=== PATIENT | male | born 1965 | race Caucasian/White ===

== ENCOUNTER → 2016-09-22 | Outpatient (REF) | payer MEDICARE ==
[~2016-09-22] MED LIST: /ACETCOD2T PO; ASPI81TA85 PO; ELIQ5TAB PO; FENT100D25 TD; LEVO200T4 PO; LEVO75TA4 PO; METF500T PO; METO25TA74 PO; OXYC-299 PO; TYLE650T25 PO; [UNRECOGNIZED DRUG - CODE] PO
[2016-09-22 12:34] LABS: THYROXINE (T4) 9.2 UG/DL (4.5-12.0)
== END ==
LOC: M SFHCLERA 09:44
PROVIDERS: ATTEND Family Medicine
DX: E03.9 Hypothyroidism, unspecified (principal)

== ENCOUNTER → 2016-09-23 | Outpatient (CLI) | payer MEDICARE ==
[~2016-09-23] MED LIST changes: +LIDOCAINE 2% INJ 100 MG/5 ML SDV (FOR ANES.) As Ordered ONE; +METOCLOPRAMIDE INJ 10MG/2ML VIAL (J2765) As Ordered ONE; +ONDANSETRON 4MG/2ML VIAL (J2405) As Ordered ONE; +PROPOFOL 200 MG/20 ML VIAL As Ordered ONE
--- NOTE | 2016-09-23 14:36 | ROOR ---
Patient Name: Luca Interiano Procedure Date: 09/23/2016 2:17 PM Date of : 1965 Age: 51 Room: [facility] Gender: Male Note Status: Finalized Procedure: Colonoscopy Indications: Screening for colorectal malignant neoplasm Providers: Vicente Myles Jr, MD Referring MD: THOMAS BRYSON MD Requesting Provider: Medicines: Propofol per Anesthesia Complications: No immediate complications. Procedure: Pre-Anesthesia Assessment: - Prior to the procedure, a History and Physical was performed, and patient medications and allergies were reviewed. The patient is competent. The risks and benefits of the procedure and the sedation options and risks were discussed with the patient. All questions were answered and informed consent was obtained. Patient identification and proposed procedure were verified by the physician and the nurse in the pre-procedure area and in the procedure room. Mental Status Examination: alert and oriented. Airway Examination: normal oropharyngeal airway and neck mobility. Respiratory Examination: clear to auscultation. CV Examination: normal. ASA Grade Assessment: II - A patient with mild systemic disease. After reviewing the risks and benefits, the patient was deemed in satisfactory condition to undergo the procedure. The anesthesia plan was to use moderate sedation / analgesia (conscious sedation). Immediately prior to administration of medications, the patient was re-assessed for adequacy to receive sedatives. The heart rate, respiratory rate, oxygen saturations, blood pressure, adequacy of pulmonary ventilation, and response to care were monitored throughout the procedure. The physical status of the patient was re-assessed after the procedure. The Colonoscope was introduced through the anus and advanced to the cecum, identified by appendiceal orifice and ileocecal valve. The colonoscopy was performed with moderate difficulty due to poor bowel prep with stool present. Successful completion of the procedure was aided by lavage. Findings: The perianal and digital rectal examinations were normal. Pertinent negatives include normal sphincter tone, no palpable rectal lesions and no anal lesion or abnormality was detected. Multiple small and large-mouthed diverticula were found in the sigmoid colon and descending colon. A few small and large-mouthed diverticula were found in the transverse colon and ascending colon. The rectum, recto-sigmoid colon, transverse colon, ascending colon, cecum, appendiceal orifice and ileocecal valve appeared normal. Impression: - Diverticulosis in the sigmoid colon and in the descending colon. - Diverticulosis in the transverse colon and in the ascending colon. - The rectum, recto-sigmoid colon, transverse colon, ascending colon, cecum, appendiceal orifice and ileocecal valve are normal. - No specimens collected. Recommendation: - Discharge patient to home (ambulatory). - Repeat colonoscopy in 10 years for screening purposes. Vicente Myles MD Vicente Myles Jr, MD 09/23/2016 2:35:54 PM This report has been signed electronically. Number of Addenda: 0 Note Initiated On: 09/23/2016 2:17 PM Estimated Blood Loss: Estimated blood loss: none.
[2016-09-23 15:10] VITALS: BP 153/81
== END ==
LOC: M OPP 13:18
PROVIDERS: ATTEND Surgery
DX: Z12.11 Encounter for screening for malignant neoplasm of colon (principal); K57.30 Diverticulosis of large intestine without perforation or abscess without bleeding; I10 Essential (primary) hypertension; I48.91 Unspecified atrial fibrillation; E78.5 Hyperlipidemia, unspecified; E11.9 Type 2 diabetes mellitus without complications; E03.9 Hypothyroidism, unspecified; E78.00 Pure hypercholesterolemia, unspecified; F41.9 Anxiety disorder, unspecified; F32.9 Major depressive disorder, single episode, unspecified; Z87.891 Personal history of nicotine dependence; Z79.82 Long term (current) use of aspirin; Z79.899 Other long term (current) drug therapy
CPT/HCPCS: 99156; 99157; G0121; J2405; J2765

== ENCOUNTER → 2016-10-21 | Outpatient (REF) | payer MEDICARE ==
[~2016-10-21] MED LIST changes: -LIDOCAINE 2% INJ 100 MG/5 ML SDV (FOR ANES.) As Ordered ONE; -METOCLOPRAMIDE INJ 10MG/2ML VIAL (J2765) As Ordered ONE; -ONDANSETRON 4MG/2ML VIAL (J2405) As Ordered ONE; -PROPOFOL 200 MG/20 ML VIAL As Ordered ONE
[2016-10-21 17:23] LABS: MEAN CORPUSCULAR HEMOGLOBIN 30.4 pg (27.0-33.0); MEAN CORPUSCULAR HGB CONC 33.9 g/dl (32.0-36.5); MEAN CORPUSCULAR VOLUME 89.8 fl (80.0-96.0); RED CELL DISTRIBUTION WIDTH 12.1 % (11.5-14.5); WHITE BLOOD COUNT 7.7 K/mm3 (4.0-10.0)
[2016-10-21 18:10] LABS: ALBUMIN 3.9 GM/DL (3.2-5.2); ALBUMIN/GLOBULIN RATIO 1.15 (1.00-1.93); ALKALINE PHOSPHATASE 58 U/L (45-117); ALT/SGPT 45 U/L (12-78); ANION GAP 12 MEQ/L (8-16); AST/SGOT 28 U/L (15-37); BLOOD UREA NITROGEN 18 MG/DL (7-18); CALCIUM LEVEL 8.9 MG/DL (8.5-10.1); CARBON DIOXIDE LEVEL 25 MEQ/L (21-32); CHLORIDE LEVEL 102 MEQ/L (98-107); CHOLESTEROL LEVEL 91 MG/DL (<200); CREATININE FOR GFR 0.83 MG/DL (0.70-1.30); GLOMERULAR FILTRATION RATE > 60.0 (>56); GLUCOSE, FASTING 283 MG/DL (70-105); POTASSIUM SERUM 5.1 MEQ/L (3.5-5.1); SODIUM LEVEL 139 MEQ/L (136-145); TOTAL PROTEIN 7.3 GM/DL (6.4-8.2); TRIGLYCERIDES LEVEL 84 MG/DL (<150)
== END ==
LOC: M SFHCLERA 10:30
PROVIDERS: ATTEND Family Medicine
DX: I10 Essential (primary) hypertension (principal); E11.69 Type 2 diabetes mellitus with other specified complication; E03.9 Hypothyroidism, unspecified

== ENCOUNTER → 2017-04-05 | Outpatient (REF) | payer MEDICARE ==
[~2017-04-05] MED LIST changes: +METO1TAB32 PO; -METO25TA74 PO; +OXYC-141 PO; -OXYC-299 PO
[2017-04-05 12:27] LABS: ALBUMIN 3.8 GM/DL (3.2-5.2); ALBUMIN/GLOBULIN RATIO 1.23 (1.00-1.93); ALKALINE PHOSPHATASE 48 U/L (45-117); ALT/SGPT 44 U/L (12-78); ANION GAP 8 MEQ/L (8-16); AST/SGOT 19 U/L (15-37); BILIRUBIN,TOTAL 0.7 MG/DL (0.2-1.0); BLOOD UREA NITROGEN 14 MG/DL (7-18); CALCIUM LEVEL 8.5 MG/DL (8.5-10.1); CARBON DIOXIDE LEVEL 27 MEQ/L (21-32); CHLORIDE LEVEL 104 MEQ/L (98-107); CHOLESTEROL LEVEL 89 MG/DL (<200); CREATININE FOR GFR 0.83 MG/DL (0.70-1.30); GLOMERULAR FILTRATION RATE > 60.0 (>56); GLUCOSE, FASTING 204 MG/DL (70-105); POTASSIUM SERUM 5.1 MEQ/L (3.5-5.1); SODIUM LEVEL 139 MEQ/L (136-145); TOTAL PROTEIN 6.9 GM/DL (6.4-8.2); TRIGLYCERIDES LEVEL 75 MG/DL (<150)
== END ==
LOC: M SFHCLERA 07:34
PROVIDERS: ATTEND Physician Assistant
DX: E11.8 Type 2 diabetes mellitus with unspecified complications (principal); E78.2 Mixed hyperlipidemia; E03.9 Hypothyroidism, unspecified

== ENCOUNTER → 2017-10-04 | Outpatient (REF) | payer MEDICARE ==
[2017-10-04 12:33] LABS: HEMATOCRIT 42.9 % (42.0-52.0); HEMOGLOBIN 14.8 g/dl (14.0-18.0); MEAN CORPUSCULAR HEMOGLOBIN 30.5 pg (27.0-33.0); MEAN CORPUSCULAR HGB CONC 34.5 g/dl (32.0-36.5); MEAN CORPUSCULAR VOLUME 88.3 fl (80.0-96.0); PLATELET COUNT, AUTOMATED 315 10^3/uL (150-450); RED BLOOD COUNT 4.86 10^6/uL (4.30-6.10); RED CELL DISTRIBUTION WIDTH 12.1 % (11.5-14.5); WHITE BLOOD COUNT 6.9 10^3/uL (4.0-10.0)
[2017-10-04 12:49] LABS: ALBUMIN 3.9 GM/DL (3.2-5.2); ALBUMIN/GLOBULIN RATIO 1.22 (1.00-1.93); ALKALINE PHOSPHATASE 54 U/L (45-117); ALT/SGPT 38 U/L (12-78); ANION GAP 11 MEQ/L (8-16); AST/SGOT 20 U/L (7-37); BILIRUBIN,TOTAL 0.8 MG/DL (0.2-1.0); BLOOD UREA NITROGEN 22 MG/DL (7-18); CALCIUM LEVEL 8.7 MG/DL (8.5-10.1); CARBON DIOXIDE LEVEL 25 MEQ/L (21-32); CHLORIDE LEVEL 103 MEQ/L (98-107); CHOLESTEROL LEVEL 78 MG/DL (<200); CHOLESTEROL RISK RATIO 2.166 (<5); CREATININE FOR GFR 0.93 MG/DL (0.70-1.30); GLOMERULAR FILTRATION RATE > 60.0 (>56); GLUCOSE, FASTING 250 MG/DL (70-100); HDL CHOLESTEROL 36 MG/DL (>40); LDL CHOLESTEROL 29.4 MG/DL (<100); NON-HDL-C 42 MG/DL; POTASSIUM SERUM 4.4 MEQ/L (3.5-5.1); PSA SCREENING 0.25 NG/ML (< 4.0); SODIUM LEVEL 139 MEQ/L (136-145); TOTAL PROTEIN 7.1 GM/DL (6.4-8.2); TRIGLYCERIDES LEVEL 63 MG/DL (<150)
[2017-10-04 13:08] LABS: MALB URINE SIEMENS 69.5 MG/L; MAU/CREAT RATIO 24.3 MCG/MG (0.0-30.0)
[2017-10-04 13:26] LABS: ESTIMATED AVERAGE GLUCOSE 252 MG/DL (60-110); HEMOGLOBIN A1c 10.4 %
== END ==
LOC: M SFHCLERA 08:14
DX: I10 Essential (primary) hypertension (principal); E03.9 Hypothyroidism, unspecified; E11.8 Type 2 diabetes mellitus with unspecified complications; E29.1 Testicular hypofunction; Z79.891 Long term (current) use of opiate analgesic
CPT/HCPCS: 84403

== ENCOUNTER 2017-10-18 10:58 | Emergency (ER) | payer MEDICARE ==
[2017-10-18] MEDS: FAMOTIDINE IV BAG 20 MG in APPROPRIATE DILUENT 1 EA IV (12:03)
[2017-10-18] MEDS: methylPREDNISolone INJ 125 MG/2 ML VIAL (J2930) IV (12:03)
[2017-10-18] MEDS: diphenhydrAMINE INJ 50MG/ML VIAL (J1200) IV (12:03)
[2017-10-18 12:09] LABS: BASO # 0.1 10^3/uL (0.0-0.2); BASO % 1.2 % (0.0-1.0); EOS # 0.3 10^3/uL (0.0-0.50); EOS % 3.1 % (0.0-3.0); HEMATOCRIT 46.1 % (42.0-52.0); IMMATURE GRANULOCYTE % 0.7 % (0-3.0); LYMPH # 2.8 10^3/uL (1.5-4.5); LYMPH % 29.1 % (24.0-44.0); MEAN CORPUSCULAR HEMOGLOBIN 30.5 pg (27.0-33.0); MEAN CORPUSCULAR HGB CONC 34.7 g/dl (32.0-36.5); MONO # 0.7 10^3/uL (0.0-0.8); MONO % 7.4 % (0.0-5.0); NEUTROPHILS # 5.5 10^3/uL (1.8-7.7); NEUTROPHILS % 58.5 % (36.0-66.0); PLATELET COUNT, AUTOMATED 323 10^3/uL (150-450); RED BLOOD COUNT 5.24 10^6/uL (4.30-6.10); RED CELL DISTRIBUTION WIDTH 12.1 % (11.5-14.5); WHITE BLOOD COUNT 9.4 10^3/uL (4.0-10.0)
== END 2017-10-18 13:18 | disposition home or self-care (01) ==
LOC: M ED 10:58
DX: T78.3XXA Angioneurotic edema, initial encounter (principal); R22.0 Localized swelling, mass and lump, head; R06.89 Other abnormalities of breathing; X58.XXXA Exposure to other specified factors, initial encounter; Y92.098 Other place in other non-institutional residence as the place of occurrence of the external cause; I10 Essential (primary) hypertension; E11.40 Type 2 diabetes mellitus with diabetic neuropathy, unspecified; I25.2 Old myocardial infarction; M54.2 Cervicalgia; E03.9 Hypothyroidism, unspecified; Z79.899 Other long term (current) drug therapy; Z79.84 Long term (current) use of oral hypoglycemic drugs; Z79.82 Long term (current) use of aspirin; Z79.01 Long term (current) use of anticoagulants
CPT/HCPCS: J1200

== ENCOUNTER → 2018-01-26 | Outpatient (REF) | payer MEDICARE ==
[2018-01-26 11:52] LABS: HEMATOCRIT 43.5 % (42.0-52.0); HEMOGLOBIN 14.9 g/dl (13.5-17.5); MEAN CORPUSCULAR HEMOGLOBIN 30.3 pg (27.0-33.0); MEAN CORPUSCULAR HGB CONC 34.3 g/dl (32.0-36.5); MEAN CORPUSCULAR VOLUME 88.4 fl (80.0-96.0); PLATELET COUNT, AUTOMATED 310 10^3/uL (150-450); RED BLOOD COUNT 4.92 10^6/uL (4.30-6.10); RED CELL DISTRIBUTION WIDTH 12.3 % (11.5-14.5); WHITE BLOOD COUNT 6.1 10^3/uL (4.0-10.0)
[2018-01-26 12:43] LABS: ALBUMIN 3.7 GM/DL (3.2-5.2); ALBUMIN/GLOBULIN RATIO 1.12 (1.00-1.93); ALKALINE PHOSPHATASE 46 U/L (45-117); ALT/SGPT 40 U/L (12-78); ANION GAP 8 MEQ/L (8-16); AST/SGOT 20 U/L (7-37); BILIRUBIN,TOTAL 0.7 MG/DL (0.2-1.0); BLOOD UREA NITROGEN 12 MG/DL (7-18); CALCIUM LEVEL 8.5 MG/DL (8.5-10.1); CARBON DIOXIDE LEVEL 25 MEQ/L (21-32); CHLORIDE LEVEL 107 MEQ/L (98-107); CHOLESTEROL LEVEL 97 MG/DL (<200); CHOLESTEROL RISK RATIO 2.487 (<5); CREATININE FOR GFR 0.82 MG/DL (0.70-1.30); GLOMERULAR FILTRATION RATE > 60.0 (>56); GLUCOSE, FASTING 178 MG/DL (70-100); HDL CHOLESTEROL 39 MG/DL (>40); LDL CHOLESTEROL 44.2 MG/DL (<100); NON-HDL-C 58 MG/DL; POTASSIUM SERUM 4.7 MEQ/L (3.5-5.1); SODIUM LEVEL 140 MEQ/L (136-145); TRIGLYCERIDES LEVEL 69 MG/DL (<150)
[2018-01-26 12:51] LABS: ESTIMATED AVERAGE GLUCOSE 200 MG/DL (60-110); HEMOGLOBIN A1c 8.6 %
== END ==
LOC: M SFHCLERA 09:45
DX: I10 Essential (primary) hypertension (principal); E11.69 Type 2 diabetes mellitus with other specified complication; E03.9 Hypothyroidism, unspecified
CPT/HCPCS: 84443

== ENCOUNTER → 2018-03-29 | Outpatient (REF) | payer MEDICARE ==
[2018-03-29 12:06] LABS: AMPHETAMINES URINE REFLEX NEGATIVE (NEGATIVE); BARBITURATES URINE REFLEX NEGATIVE (NEGATIVE); BENZODIAZEPINES URINE REFLEX NEGATIVE (NEGATIVE); CANNABINOIDS URINE REFLEX NEGATIVE (NEGATIVE); COCAINE METABOLITE URINE REFLE NEGATIVE (NEGATIVE); METHADONE URINE REFLEX NEGATIVE (NEGATIVE); PHENCYCLIDINE URINE REFLEX NEGATIVE (NEGATIVE)
[2018-03-29 12:10] LABS: OPIATES URINE REFLEX PENDING CONFIRMATION (NEGATIVE)
[2018-04-05 14:25] LABS: Opiates Negative (Cutoff=200)
== END ==
LOC: M SFHCLERA 09:38
DX: G89.4 Chronic pain syndrome (principal); Z51.81 Encounter for therapeutic drug level monitoring; Z79.891 Long term (current) use of opiate analgesic
CPT/HCPCS: G0480

== ENCOUNTER → 2018-04-25 | Outpatient (REF) | payer MEDICARE ==
[2018-04-25 12:27] LABS: ESTIMATED AVERAGE GLUCOSE 206 MG/DL (60-110); HEMOGLOBIN A1c 8.8 %
== END ==
LOC: M SFHCLERA 09:43
DX: E11.8 Type 2 diabetes mellitus with unspecified complications (principal)
CPT/HCPCS: 83036

== ENCOUNTER → 2018-08-02 | Outpatient (REF) | payer MEDICARE ==
[2018-08-02 14:01] LABS: ESTIMATED AVERAGE GLUCOSE 226 MG/DL (60-110); HEMOGLOBIN A1c 9.5 %
== END ==
LOC: M SFHCLERA 09:33
DX: E11.65 Type 2 diabetes mellitus with hyperglycemia (principal)
CPT/HCPCS: 83036

== ENCOUNTER → 2018-08-09 | Outpatient (CLI) | payer MEDICARE ==
[~2018-08-09] MED LIST changes: +ATOR40TA75 PO; +BENA25TA10 PO; +JANU100T; +LISI-542; +PRED20TA PO
[2018-08-09 11:53] LABS: APPEARANCE, URINE HAZY (CLEAR); BACTERIA, URINE AUTO 1+ (NEGATIVE); BILIRUBIN, URINE AUTO NEGATIVE (NEGATIVE); BLOOD, URINE BLOOD NEGATIVE (NEGATIVE); COLOR, URINE YELLOW (YELLOW); GLUCOSE, URINE (UA) AUTO 1+ mg/dL (NEGATIVE); KETONE, URINE AUTO NEGATIVE (NEGATIVE); LEUKOCYTE ESTERASE, URINE AUTO NEGATIVE (NEGATIVE); MUCUS, URINE SMALL (NEGATIVE); NITRITE, URINE AUTO NEGATIVE (NEGATIVE); PROTEIN, URINE AUTO NEGATIVE (NEGATIVE); RBC, URINE AUTO 1 /HPF (0-3); SPECIFIC GRAVITY URINE AUTO 1.021 (1.002-1.035); SQUAMOUS EPITHELIAL CELL UR AU 1 /HPF (0-6); URIC ACID CRYSTALS SMALL; UROBILINOGEN, URINE AUTO 0.2 mg/dL (0.0-2.0); WBC, URINE AUTO 4 /HPF (0-3)
== END ==
LOC: M LRY 07:54
PROVIDERS: ATTEND Surgery
DX: N35.919 Unspecified urethral stricture, male, unspecified site (principal)

== ENCOUNTER 2018-08-30 03:19 | Emergency (ER) | payer MEDICARE ==
[~2018-08-30] VITALS: Ht 182.9 cm; Wt 102.3 kg
[2018-08-30] MEDS ORDERED: oxyCODONE 5MG TAB PO ONE (09:15)
[2018-08-30 09:35] VITALS: BP 124/68
== END 2018-08-30 09:35 | disposition home or self-care (01) ==
LOC: M ED 03:19 → EDBD 03:19 → M ED 09:35
DX: T83.83XA Hemorrhage due to genitourinary prosthetic devices, implants and grafts, initial encounter (principal)

== ENCOUNTER 2018-09-04 09:19 | Emergency (ER) | payer MEDICARE ==
[~2018-09-04] VITALS: Ht 172.7 cm; Wt 102.3 kg
[2018-09-04] MEDS ORDERED: FENT12DI8 (09:27)
[2018-09-04] MEDS ORDERED: BUPR150T3 (09:27)
[2018-09-04] MEDS ORDERED: DIAZ10TA2 (09:27)
[2018-09-04] MEDS ORDERED: OXYB5TAB10 (09:27)
[2018-09-04] MEDS ORDERED: TRUL0.5I (09:27)
[2018-09-04] MEDS ORDERED: METO50TA7 (09:27)
[2018-09-04] MEDS ORDERED: METF10004 (09:27)
[2018-09-04 11:01] VITALS: BP 143/80
== END 2018-09-04 11:03 | disposition home or self-care (01) ==
LOC: M ED 09:19
DX: R33.9 Retention of urine, unspecified (principal); Z96.0 Presence of urogenital implants; Z98.890 Other specified postprocedural states; E11.9 Type 2 diabetes mellitus without complications; I10 Essential (primary) hypertension; E03.9 Hypothyroidism, unspecified; G62.9 Polyneuropathy, unspecified; Z87.891 Personal history of nicotine dependence

== ENCOUNTER → 2019-01-04 | Outpatient (REF) | payer MEDICARE ==
[~2019-01-04] MED LIST changes: -/ACETCOD2T PO; +ACET1TAB15 PO; +BUPR150T3; +DIAZ10TA2; +FENT12DI8; +METF10004; +METO50TA7; +OXYB5TAB10; +TRUL0.5I
[2019-01-04 11:52] LABS: HEMOGLOBIN A1c 10.7 %
[2019-01-04 11:58] LABS: ALBUMIN 4.1 GM/DL (3.2-5.2); ALT/SGPT 40 U/L (12-78); BILIRUBIN,TOTAL 0.7 MG/DL (0.2-1.0); BLOOD UREA NITROGEN 21 MG/DL (7-18); CALCIUM LEVEL 9.3 MG/DL (8.5-10.1); CARBON DIOXIDE LEVEL 28 MEQ/L (21-32); CHLORIDE LEVEL 103 MEQ/L (98-107); CHOLESTEROL LEVEL 92 MG/DL (<200); CHOLESTEROL RISK RATIO 2.628 (<5); CREATININE FOR GFR 0.98 MG/DL (0.70-1.30); GLOMERULAR FILTRATION RATE > 60.0 (>56); GLUCOSE, FASTING 272 MG/DL (70-100); HDL CHOLESTEROL 35 MG/DL (>40); LDL CHOLESTEROL 40 MG/DL (<100); NON-HDL-C 57 MG/DL; POTASSIUM SERUM 4.7 MEQ/L (3.5-5.1); SODIUM LEVEL 139 MEQ/L (136-145); TESTOSTERONE 142 NG/DL (241-827); TOTAL PROTEIN 7.2 GM/DL (6.4-8.2); TRIGLYCERIDES LEVEL 86 MG/DL (<150)
[2019-01-04 12:08] LABS: MAU/CREAT RATIO 65.2 MCG/MG (0.0-30.0)
== END ==
LOC: M SFHCLERA 08:21
PROVIDERS: ATTEND Family Medicine
DX: R79.89 Other specified abnormal findings of blood chemistry (principal); E03.9 Hypothyroidism, unspecified; E11.42 Type 2 diabetes mellitus with diabetic polyneuropathy; E78.2 Mixed hyperlipidemia

== ENCOUNTER → 2019-01-19 | Outpatient (REF) | payer MEDICARE ==
[2019-01-19 12:11] LABS: FOLLICLE STIMULATING HORMONE 6.1 mIU/mL (1.4-18.1); LUTEINIZING HORMONE 2.2 mIU/mL (1.5-9.3)
== END ==
LOC: M SFHCLERA 08:30
PROVIDERS: ATTEND Family Medicine
DX: R79.89 Other specified abnormal findings of blood chemistry (principal)

== ENCOUNTER → 2019-03-31 | Outpatient (CLI) | payer MEDICARE ==
--- NOTE | 2019-03-31 13:30 | REP ---
RIGHT SHOULDER, COMPLETE: 03/31/2019. History: Injury, trauma. Findings AC joint spurring superiorly and inferiorly from the clavicle. There are also degenerative changes at the inferior margin of the glenohumeral joint clavicle, scapula, ribs and humerus without fracture, avulsion or abnormal soft-tissue calcification. Impression: 1. AC and glenohumeral joint arthritis with inferior spurring from those joints but no fracture, avulsion or other acute finding. Electronically Signed by Ney Whitney MD 03/31/2019 09:54 P
== END ==
LOC: M LRY 11:32
PROVIDERS: ATTEND Physician Assistant
DX: M19.011 Primary osteoarthritis, right shoulder (principal); S49.91XA Unspecified injury of right shoulder and upper arm, initial encounter; X50.0XXA Overexertion from strenuous movement or load, initial encounter; Y92.9 Unspecified place or not applicable
CPT/HCPCS: 73030; G0463

== ENCOUNTER → 2019-04-18 | Outpatient (REF) | payer MEDICARE ==
[2019-04-18 11:29] LABS: FREE T4 1.1 NG/DL (0.76-1.46); PERCENT SATURATION 25.1 % (19.7-50.0)
[2019-04-18 11:44] LABS: HEMOGLOBIN A1c 9.7 %
[2019-04-18 12:55] LABS: CORTISOL AM 27.7 UG/DL (4.3-22.4)
== END ==
LOC: M SFHCLERA 07:58
PROVIDERS: ATTEND Family Medicine
DX: R79.89 Other specified abnormal findings of blood chemistry (principal); E11.42 Type 2 diabetes mellitus with diabetic polyneuropathy; E03.9 Hypothyroidism, unspecified

== ENCOUNTER → 2019-07-04 | Outpatient (CLI) | payer MEDICARE ==
--- NOTE | 2019-07-04 12:39 | REP ---
MRI RIGHT SHOULDER: TECHNIQUE: Axial T2 fat sat, gradient echo, sagittal oblique T2 fat sat, coronal oblique T1, T2 fat sat. There is ill-defined high signal involving the supraspinatus and infraspinatus tendons compatible with mild to moderate tendinopathy/tendinitis. Partial undersurface tear is seen at the distal end of the supraspinatus tendon. There may be a partial intrasubstance tear of the infraspinatus tendon. There are mild hypertrophic degenerative changes of the acromioclavicular joint with moderate fluid in the joint and mild subchondral marrow edema. Acromion is type 1. Biceps tendon is unremarkable. There is no Hill-Sachs deformity. The deltoid muscle demonstrates no abnormal signal. Diffuse SLAP tear is noted which also involves the biceps labral complex. I suspect at tear at the posterior inferior corner of the labrum. No other abnormal bone marrow signal is seen. Mild subacromial fluid is seen. IMPRESSION: Supraspinatus and infraspinatus tendinopathy/tendinitis. Partial undersurface tear distal supraspinatus tendon. Possible intrasubstance tear infraspinatus tendon. Moderate hypertrophic degenerative changes acromioclavicular joint. Type 1 acromion. Diffuse SLAP tear, which involves the biceps labral complex. I also suspect a tear at the posterior inferior corner of the labrum. Electronically Signed by Thomas Maldonado MD 07/05/2019 11:19 A
== END ==
LOC: M RAD 10:03
PROVIDERS: ATTEND Orthopaedic Surgery
DX: M25.511 Pain in right shoulder (principal)

== ENCOUNTER → 2019-07-27 | Outpatient (REF) | payer MEDICARE ==
[2019-07-27 11:30] LABS: AMPHETAMINES URINE REFLEX NEGATIVE (NEGATIVE); BARBITURATES URINE REFLEX NEGATIVE (NEGATIVE); BENZODIAZEPINES URINE REFLEX NEGATIVE (NEGATIVE); CANNABINOIDS URINE REFLEX NEGATIVE (NEGATIVE); COCAINE METABOLITE URINE REFLE NEGATIVE (NEGATIVE); METHADONE URINE REFLEX NEGATIVE (NEGATIVE); OPIATES URINE REFLEX NEGATIVE (NEGATIVE); PHENCYCLIDINE URINE REFLEX NEGATIVE (NEGATIVE)
[2019-07-27 11:32] LABS: HEMOGLOBIN A1c 10.4 %
[2019-07-27 11:38] LABS: BLOOD UREA NITROGEN 18 MG/DL (7-18); CARBON DIOXIDE LEVEL 24 MEQ/L (21-32); CHLORIDE LEVEL 104 MEQ/L (98-107); CREATININE FOR GFR 1.04 MG/DL (0.70-1.30); GLOMERULAR FILTRATION RATE > 60.0 (>56); GLUCOSE, FASTING 310 MG/DL (70-100); POTASSIUM SERUM 4.9 MEQ/L (3.5-5.1); SODIUM LEVEL 137 MEQ/L (136-145)
== END ==
LOC: M SFHCLERA 08:14
PROVIDERS: ATTEND Family Medicine
DX: G89.4 Chronic pain syndrome (principal); E11.8 Type 2 diabetes mellitus with unspecified complications; E03.9 Hypothyroidism, unspecified

== ENCOUNTER → 2019-07-28 | Outpatient (REF) | payer MEDICARE | LOC: M SFHCLERA 09:50 | PROVIDERS: ATTEND Family Medicine | DX: R89.2 Abnormal level of other drugs, medicaments and biological substances in specimens from other organs, systems and tissues (principal) ==

== ENCOUNTER 2019-10-08 05:32 | Emergency (ER) | payer MEDICARE ==
[~2019-10-08] VITALS: Ht 172.7 cm; Wt 104.5 kg
[2019-10-08] MEDS ORDERED: ROXI1TAB2 PO (05:37)
[2019-10-08] MEDS ORDERED: JARD1TAB PO (05:37)
[2019-10-08 06:26] LABS: INFLUENZA A AMPLIFICATION NEGATIVE (NEGATIVE); INFLUENZA B AMPLIFICATION NEGATIVE (NEGATIVE)
[2019-10-08] MEDS ORDERED: ACETAMINOPHEN 500 MG TAB PO ONE (07:00)
--- NOTE | 2019-10-08 07:54 | REP ---
PA and lateral chest: Comparison is 08/12/2007. The lung rg are clear. The cardiac size is normal. The morales, mediastinum, and skeletal structures are unremarkable. There is a cervical spine stabilization plate, unchanged. There is body jewelry in the left costophrenic angle. Impression: Negative PA and lateral chest. There is no interval change except for the body jewelry. Electronically Signed by Thomas Okeefe MD 10/08/2019 07:46 A
[2019-10-08 08:37] VITALS: BP 125/78
== END 2019-10-08 08:38 | disposition home or self-care (01) ==
LOC: M ED 05:32
DX: J06.9 Acute upper respiratory infection, unspecified (principal); E11.9 Type 2 diabetes mellitus without complications; I10 Essential (primary) hypertension; I48.91 Unspecified atrial fibrillation; Z88.8 Allergy status to other drugs, medicaments and biological substances; Z79.899 Other long term (current) drug therapy; Z79.82 Long term (current) use of aspirin; Z79.84 Long term (current) use of oral hypoglycemic drugs

== ENCOUNTER → 2019-10-23 | Outpatient (REF) | payer MEDICARE ==
[~2019-10-23] MED LIST changes: +JARD1TAB PO; +ROXI1TAB2 PO
[2019-10-23 18:58] LABS: HEMOGLOBIN A1c 10.5 %
== END ==
LOC: M SFHCLERA 10:44
PROVIDERS: ATTEND Family Medicine
DX: E11.65 Type 2 diabetes mellitus with hyperglycemia (principal); E03.9 Hypothyroidism, unspecified

== ENCOUNTER → 2019-10-30 | Outpatient (CLI) | payer MEDICARE ==
[2019-10-30 11:48] LABS: HEMATOCRIT 48.8 % (42.0-52.0); HEMOGLOBIN 16.3 g/dl (13.5-17.5)
== END ==
LOC: M LRY 08:52
PROVIDERS: ATTEND Internal Medicine Endocrinology, Diabetes & Metabolism
DX: E29.1 Testicular hypofunction (principal)
CPT/HCPCS: 36415; 84403; 85014; 85018; G0103

== ENCOUNTER → 2019-10-31 | Outpatient (CLI) | payer MEDICARE ==
--- NOTE | 2019-11-01 10:19 | REP ---
MRI RIGHT KNEE: TECHNIQUE: Axial proton density fat saturation, sagittal proton density T2 STIR, water excitation, coronal proton density, proton density fat saturation. There is an oblique tear involving the anterior horn of the lateral meniscus extending into the body of the lateral meniscus. Medial meniscus appears intact. Cruciate and collateral ligaments are intact. Extensor mechanism is intact. There is mild global chondromalacia in all three joint compartments. There is no bony marrow edema or occult fracture. There is a small joint effusion, with a small amount of fluid extending into the popliteal fossa between the medial head of the gastrocnemius and semimembranosus tendon. Medial and lateral patellar retinacula are intact. IMPRESSION: Oblique tear anterior horn lateral meniscus extending into the body of the lateral meniscus. Medial meniscus is intact. Cruciate and collateral ligaments are intact. Mild global chondromalacia. Small joint effusion. Electronically Signed by Thomas Maldonado MD 11/01/2019 05:39 P
== END ==
LOC: M RAD 18:06
PROVIDERS: ATTEND Orthopaedic Surgery
DX: M25.561 Pain in right knee (principal)

== ENCOUNTER 2019-12-08 10:11 | Emergency (ER) | payer MEDICARE ==
[~2019-12-08] VITALS: Ht 172.7 cm; Wt 108.6 kg
[2019-12-08] MEDS ORDERED: BASA100I SQ (10:23)
[2019-12-08] MEDS ORDERED: MORPHINE 4 MG/ML 1ML VIAL/SYRINGE (J2270) IV ONE (10:45)
[2019-12-08] MEDS ORDERED: ONDANSETRON 4MG/2ML VIAL IV ONE (10:45)
[2019-12-08] MEDS ORDERED: NS 1,000 ML IV ONE (10:45)
[2019-12-08 11:08] LABS: BASO # 0.1 10^3/uL (0.0-0.2); EOS # 0.1 10^3/uL (0.0-0.5); EOS % 0.8 % (0.0-3.0); HEMATOCRIT 53.5 % (42.0-52.0); HEMOGLOBIN 18.4 g/dl (13.5-17.5); LYMPH # 1.3 10^3/uL (1.5-5.0); LYMPH % 10.7 % (24.0-44.0); MEAN CORPUSCULAR HEMOGLOBIN 31.2 pg (27.0-33.0); MEAN CORPUSCULAR HGB CONC 34.4 g/dl (32.0-36.5); MEAN CORPUSCULAR VOLUME 90.8 fl (80.0-96.0); MONO # 0.6 10^3/uL (0.0-0.8); MONO % 4.6 % (0.0-5.0); NEUTROPHILS # 10.3 10^3/uL (1.5-8.5); NEUTROPHILS % 81.7 % (36.0-66.0); PLATELET COUNT, AUTOMATED 313 10^3/uL (150-450); RED BLOOD COUNT 5.89 10^6/uL (4.30-6.10); WHITE BLOOD COUNT 12.6 10^3/uL (4.0-10.0)
[2019-12-08 11:20] LABS: INR 1.08; PROTHROMBIN TIME 13.7 SECONDS (11.8-14.0)
[2019-12-08 11:21] LABS: PARTIAL THROMBOPLASTIN TIME 27.5 SECONDS (25.0-38.4)
[2019-12-08 11:30] LABS: CALCIUM LEVEL 9.9 MG/DL (8.5-10.1); CREATININE FOR GFR 1.4 MG/DL (0.70-1.30); GLOMERULAR FILTRATION RATE 56.4 (>56); POTASSIUM SERUM 4.5 MEQ/L (3.5-5.1)
[2019-12-08] MEDS ORDERED: HYDROMORPHONE HCL 0.5 MG/ 0.5 ML SYRINGE (J1170 PER 1) IV PRN (11:30)
[2019-12-08] MEDS ORDERED: TAMSULOSIN 0.4 MG CAP PO ONE (12:00)
[2019-12-08] MEDS ORDERED: PERC5TAB12 PO (12:08)
[2019-12-08] MEDS ORDERED: FLOM0.4C39 PO (12:08)
[2019-12-08] MEDS ORDERED: ONDA4TAB6 PO (12:08)
[2019-12-08 12:13] VITALS: BP 162/78
--- NOTE | 2019-12-08 12:20 | REP ---
CT ABDOMEN AND PELVIS WITHOUT CONTRAST: CT abdomen and pelvis performed without oral or IV contrast. Sagittal and coronal reconstruction images are performed. Visualized lung bases demonstrate no infiltrate. The liver is grossly unremarkable. The spleen is normal in size. The adrenal glands are normal. The pancreas is grossly unremarkable. Right kidney demonstrates no stone or hydronephrosis. There is mild left hydronephrosis caused by a 4 mm calculus in the proximal left ureter. There is mild perinephric edema. Punctate calcification is seen in the lower pole of the left kidney. No bladder calculus is seen. There is mild atherosclerotic calcification of the abdominal aorta with no aneurysm. There is no adenopathy. There is no free air or free fluid. There is no bowel wall thickening. The appendix is normal. Multiple diverticula are seen on the left colon. No pelvic mass is seen. There are degenerative changes of the spine. There is evidence of prior surgical fusion of the L3 through S1 levels of posterior rods and screws. There are degenerative changes of the spine. IMPRESSION: There is a 4 mm calculus of the proximal left ureter causing mild left hydronephrosis. There is also a punctate calcification in a left lower pole collecting system. No other acute abnormalities. Electronically Signed by Thomas Maldonado MD 12/08/2019 04:18 P
--- NOTE | 2019-12-09 09:57 | ECGEPIP ---
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 Order Number: [id number] Reading MD: Jarrod Barney Measurements Intervals [place] Rate: 95 P: WA: 0 QRS: 58 QRSD: 100 T: -42 QT: 343 QTc: 432 Interpretive Statements ATRIAL FIBRILLATION NONSPECIFIC ST & T-WAVE ABNORMALITY RHYTHM/RATE CHANGE COMPARED TO 10/12/14 Electronically Signed on 12-09-2019 9:57:16 EDT by Jarrod Barney
== END 2019-12-08 12:22 | disposition home or self-care (01) ==
LOC: M ED 10:11
DX: N13.1 Hydronephrosis with ureteral stricture, not elsewhere classified (principal); N20.0 Calculus of kidney; Z88.8 Allergy status to other drugs, medicaments and biological substances; Z79.01 Long term (current) use of anticoagulants; Z79.899 Other long term (current) drug therapy
CPT/HCPCS: 74176; 80048; 81001; 85025; 85610; 85730; 93005; 96361; 96374; 96375; 99284; J1170; J2270; J2405

== ENCOUNTER 2019-12-31 11:00 | Emergency (ER) | payer MEDICARE ==
[~2019-12-31] VITALS: Ht 172.7 cm; Wt 107.5 kg
[~2019-12-31 11:00] MED LIST changes: +BASA100I SQ; +FLOM0.4C39 PO; +ONDA4TAB6 PO; +PERC5TAB12 PO
[2019-12-31] MEDS ORDERED: OXYC10TA12 (11:11)
[2019-12-31] MEDS ORDERED: DIGO0.253 (11:11)
[2019-12-31] MEDS ORDERED: TEST200I14 (11:11)
[2019-12-31] MEDS ORDERED: ROPI1TAB3 (11:11)
[2019-12-31 12:31] VITALS: BP 128/91
--- NOTE | 2019-12-31 14:24 | REP ---
REASON: Left anterior lower rib trauma. The accompanying frontal view of the chest has been compared to the prior chest examination of 10/08/2019. The frontal view of the chest is unchanged and again seen to be within normal limits. Four views of the left ribs show no evidence of an acute fracture or destructive osseous lesion. Electronically Signed by Moses De La Garza DO 12/31/2019 03:51 P
== END 2019-12-31 12:30 | disposition home or self-care (01) ==
LOC: M ED 11:00
DX: S20.212A Contusion of left front wall of thorax, initial encounter (principal); W10.9XXA Fall (on) (from) unspecified stairs and steps, initial encounter; Y92.009 Unspecified place in unspecified non-institutional (private) residence as the place of occurrence of the external cause; Y93.9 Activity, unspecified; Y99.9 Unspecified external cause status; I10 Essential (primary) hypertension; E03.9 Hypothyroidism, unspecified; Z79.01 Long term (current) use of anticoagulants; Z88.8 Allergy status to other drugs, medicaments and biological substances; Z91.81 History of falling

== ENCOUNTER → 2020-01-29 | Outpatient (CLI) | payer MEDICARE ==
[~2020-01-29] MED LIST changes: +ASPI81TA26 PO; +BASA100I SC; -BUPR150T3; +BUPR150T4; +BUPR150T5 PO; +DIGO0.253; +DIGO0.259 PO; +JARD1TAB3 PO; -LISI-542; +LISI-898; +METF-877 PO; +METO50TA7 PO; +OXYC10TA12; +OXYC10TA12 PO; +ROPI0.5T3 PO; +ROPI1TAB3; +TEST200I14; +TRUL0.5I SC; +VITA400C56 PO
--- NOTE | 2020-01-29 12:22 | REP ---
LUMBAR SPINE SERIES: Three views. HISTORY: Low back pain. COMPARISON STUDY: October 09, 2013. FINDINGS: Five views of the lumbar spine demonstrate that the patient is status post laminectomy and dorsal and ventral fusion across L3-S1. This is unchanged. Psoas margins are symmetric. Vertebral body heights are preserved. There is progressive degenerative disc spurring at the L2-3 level and some discogenic spurring is again noted at L1-2 and the visualized lower thoracic levels. Sacrum and SI joints are intact. Psoas margins are symmetric. IMPRESSION: Status post fusion and laminectomy L3-S1 bilaterally. Degenerative disc disease has progressed somewhat and L2-3 and is unchanged elsewhere. No acute abnormality. Electronically Signed by Jose Mckoy MD 01/29/2020 12:32 P
== END ==
LOC: M RAD 11:08
PROVIDERS: ATTEND Neurological Surgery
DX: M51.36 Other intervertebral disc degeneration, lumbar region (principal); M54.5 Low back pain

== ENCOUNTER 2020-02-08 09:39 | Outpatient (RCR) | payer MEDICARE ==
[~2020-02-08 09:39] MED LIST changes: -ASPI81TA26 PO; -BASA100I SC; +BUPR150T3; -BUPR150T4; -BUPR150T5 PO; -DIGO0.259 PO; -JARD1TAB3 PO; +LISI-542; -LISI-898; -METF-877 PO; -METO50TA7 PO; -OXYC10TA12 PO; -ROPI0.5T3 PO; -TRUL0.5I SC; -VITA400C56 PO
== END 2020-02-12 ==
LOC: M PT 09:39
PROVIDERS: ATTEND Neurological Surgery
DX: Z51.89 Encounter for other specified aftercare (principal); M54.5 Low back pain

== ENCOUNTER 2020-02-20 09:38 | Outpatient (RCR) | payer MEDICARE | END 2020-03-14 | disposition home or self-care (01) | LOC: M PT 09:38 | PROVIDERS: ATTEND Neurological Surgery | DX: M54.5 Low back pain (principal) ==

== ENCOUNTER → 2020-02-25 | Outpatient (CLI) | payer MEDICARE ==
[~2020-02-25] MED LIST changes: +ASPI81TA26 PO; +BASA100I SC; +BUPR150T5 PO; +DIGO0.259 PO; +JARD1TAB3 PO; +METF-877 PO; +METO50TA7 PO; +OXYC10TA12 PO; +ROPI0.5T3 PO; +TRUL0.5I SC; +VITA400C56 PO
[2020-02-25 18:41] LABS: HEMATOCRIT 58.9 % (42.0-52.0); HEMOGLOBIN 19.4 g/dl (13.5-17.5)
== END ==
LOC: M LRY 11:37
PROVIDERS: ATTEND Nurse Practitioner Family
DX: E29.1 Testicular hypofunction (principal)

== ENCOUNTER → 2020-04-22 | Outpatient (REF) | payer MEDICARE ==
[2020-04-22 19:09] LABS: BLOOD UREA NITROGEN 23 MG/DL (7-18); CARBON DIOXIDE LEVEL 25 MEQ/L (21-32); CHLORIDE LEVEL 104 MEQ/L (98-107); CHOLESTEROL LEVEL 80 MG/DL (<200); CHOLESTEROL RISK RATIO 2.424 (<5); CREATININE FOR GFR 1.06 MG/DL (0.70-1.30); GLOMERULAR FILTRATION RATE > 60.0 (>56); GLUCOSE, FASTING 206 MG/DL (70-100); HDL CHOLESTEROL 33 MG/DL (>40); LDL CHOLESTEROL 35 MG/DL (<100); NON-HDL-C 47 MG/DL; POTASSIUM SERUM 5.3 MEQ/L (3.5-5.1); SODIUM LEVEL 135 MEQ/L (136-145); TRIGLYCERIDES LEVEL 58 MG/DL (<150)
[2020-04-22 19:19] LABS: CREATININE, URINE 83.8 MG/DL; CREATININE,RANDOM URINE 83.8 MG/DL; MALB URINE SIEMENS 72.4 MG/L; MAU/CREAT RATIO 86.3 MCG/MG (0.0-30.0)
[2020-04-23 11:58] LABS: VITAMIN B12 LEVEL 447 PG/ML (247-911)
== END ==
LOC: M LAB REF 18:13
PROVIDERS: ATTEND Family Medicine
DX: E11.9 Type 2 diabetes mellitus without complications (principal)

== ENCOUNTER 2020-04-25 12:34 | Emergency (ER) | payer MEDICARE ==
[~2020-04-25] VITALS: Ht 172.7 cm; Wt 106.4 kg
[~2020-04-25 12:34] MED LIST changes: -ASPI81TA26 PO; -BASA100I SC; -BUPR150T5 PO; -DIGO0.259 PO; -JARD1TAB3 PO; -METF-877 PO; -METO50TA7 PO; -OXYC10TA12 PO; -ROPI0.5T3 PO; -TRUL0.5I SC; -VITA400C56 PO
[2020-04-25] MEDS ORDERED: ROPI0.5T3 PO (13:20)
[2020-04-25] MEDS ORDERED: VITA400C56 PO (13:20)
[2020-04-25] MEDS ORDERED: BASA100I SC (13:20)
[2020-04-25] MEDS ORDERED: JARD1TAB3 PO (13:20)
[2020-04-25] MEDS ORDERED: METO50TA7 PO (13:20)
[2020-04-25] MEDS ORDERED: ATOR40TA75 PO (13:20)
[2020-04-25] MEDS ORDERED: BUPR150T5 PO (13:20)
[2020-04-25] MEDS ORDERED: DIGO0.259 PO (13:20)
[2020-04-25] MEDS ORDERED: LEVO75TA4 PO (13:20)
[2020-04-25] MEDS ORDERED: ASPI81TA26 PO (13:20)
[2020-04-25] MEDS ORDERED: OXYC10TA12 PO (13:20)
[2020-04-25] MEDS ORDERED: METF-877 PO (13:20)
[2020-04-25] MEDS ORDERED: TRUL0.5I SC (13:20)
--- NOTE | 2020-04-25 13:48 | REPVR ---
PROCEDURE INFORMATION: Exam: XR Chest, 2 Views Exam date and time: 04/25/2020 1:39 PM Age: 54 years old Clinical indication: Abnormal findings; Abnormal diagnostic tests; Other: Polycythemia TECHNIQUE: Imaging protocol: XR of the chest Views: 2 views. COMPARISON: No relevant prior studies available. FINDINGS: Lungs: Unremarkable. No consolidation. Pleural space: Unremarkable. No pleural effusion. No pneumothorax. Heart/Mediastinum: Unremarkable. No cardiomegaly. Bones/joints: Degenerative changes involve the spine. There is hardware in the cervical spine. IMPRESSION: No evidence for acute pulmonary disease. Electronically signed by: Iván Acuna On 04/25/2020 13:48:08 PM
[2020-04-25 14:13] LABS: APPEARANCE, URINE CLEAR (CLEAR); BACTERIA, URINE AUTO NEGATIVE (NEGATIVE); BILIRUBIN, URINE AUTO NEGATIVE (NEGATIVE); BLOOD, URINE BLOOD NEGATIVE (NEGATIVE); COLOR, URINE STRAW (YELLOW); GLUCOSE, URINE (UA) AUTO 3+ mg/dL (NEGATIVE); KETONE, URINE AUTO TRACE mg/dL (NEGATIVE); LEUKOCYTE ESTERASE, URINE AUTO NEGATIVE (NEGATIVE); NITRITE, URINE AUTO NEGATIVE (NEGATIVE); PROTEIN, URINE AUTO NEGATIVE (NEGATIVE); RBC, URINE AUTO 1 /HPF (0-3); SPECIFIC GRAVITY URINE AUTO 1.028 (1.002-1.035); SQUAMOUS EPITHELIAL CELL UR AU 1 /HPF (0-6); UROBILINOGEN, URINE AUTO 0.2 mg/dL (0.0-2.0); WBC, URINE AUTO 1 /HPF (0-3)
[2020-04-25 14:26] LABS: BASO # 0.1 10^3/uL (0.0-0.2); BASO % 1.2 % (0.0-1.0); EOS # 0.3 10^3/uL (0.0-0.5); EOS % 3.2 % (0.0-3.0); HEMATOCRIT 51.8 % (42.0-52.0); HEMOGLOBIN 17.6 g/dl (13.5-17.5); LYMPH # 2.2 10^3/uL (1.5-5.0); MEAN CORPUSCULAR HEMOGLOBIN 31.5 pg (27.0-33.0); MEAN CORPUSCULAR VOLUME 92.8 fl (80.0-96.0); MONO # 0.9 10^3/uL (0.0-0.8); NEUTROPHILS # 6.3 10^3/uL (1.5-8.5); NEUTROPHILS % 63.4 % (36.0-66.0); PLATELET COUNT, AUTOMATED 286 10^3/uL (150-450); RED BLOOD COUNT 5.58 10^6/uL (4.30-6.10); WHITE BLOOD COUNT 9.9 10^3/uL (4.0-10.0)
[2020-04-25 14:37] LABS: INR 1.02; PARTIAL THROMBOPLASTIN TIME 26.2 SECONDS (25.0-38.4); PROTHROMBIN TIME 13.6 SECONDS (11.8-14.0)
[2020-04-25 14:51] LABS: ALBUMIN 3.9 GM/DL (3.2-5.2); ALT/SGPT 34 U/L (12-78); BILIRUBIN,DIRECT 0.2 MG/DL (0.0-0.2); BILIRUBIN,TOTAL 0.8 MG/DL (0.2-1.0); BLOOD UREA NITROGEN 20 MG/DL (7-18); CARBON DIOXIDE LEVEL 25 MEQ/L (21-32); CHLORIDE LEVEL 105 MEQ/L (98-107); CK-MB VALUE MASS 2.9 NG/ML (<3.6); CPK CREATINE PHOSPHOKINASE 107 U/L (39-308); CREATININE FOR GFR 1.38 MG/DL (0.70-1.30); GLOMERULAR FILTRATION RATE 57.4 (>56); GLUCOSE, FASTING 246 MG/DL (70-100); MB/CK RELATIVE INDEX 2.71 (< OR =4); NT-PRO BNP 506 PG/ML (<125); POTASSIUM SERUM 4.4 MEQ/L (3.5-5.1); SODIUM LEVEL 136 MEQ/L (136-145); TOTAL PROTEIN 7.4 GM/DL (6.4-8.2); TROPONIN I < 0.02 NG/ML (< 0.10)
[2020-04-25] MEDS ORDERED: NS 500 ML IV ONE (15:30)
[2020-04-25] MEDS ORDERED: oxyCODONE 10 MG CR TAB PO ONE (16:45)
[2020-04-25 17:34] VITALS: BP 140/78
== END 2020-04-25 17:44 | disposition home or self-care (01) ==
LOC: MERGE 12:34 → M ED 12:34
DX: R71.8 Other abnormality of red blood cells (principal); N28.89 Other specified disorders of kidney and ureter; I10 Essential (primary) hypertension; I48.91 Unspecified atrial fibrillation; E11.9 Type 2 diabetes mellitus without complications; E78.5 Hyperlipidemia, unspecified; E03.9 Hypothyroidism, unspecified; Z79.01 Long term (current) use of anticoagulants; Z79.4 Long term (current) use of insulin; Z79.82 Long term (current) use of aspirin; Z79.899 Other long term (current) drug therapy; Z88.8 Allergy status to other drugs, medicaments and biological substances

== ENCOUNTER → 2020-04-25 | Outpatient (CLI) | payer MEDICARE ==
[2020-04-25 11:50] LABS: HEMATOCRIT 58.2 % (42.0-52.0); HEMOGLOBIN 19.6 g/dl (13.5-17.5)
== END ==
LOC: M LAB 09:34
PROVIDERS: ATTEND Nurse Practitioner Family
DX: E29.1 Testicular hypofunction (principal); Z79.899 Other long term (current) drug therapy

== ENCOUNTER → 2020-04-25 | Outpatient (CLI) | payer MEDICARE ==
[2020-04-25 11:53] LABS: BASO # 0.1 10^3/uL (0.0-0.2); BASO % 1.3 % (0.0-1.0); EOS # 0.4 10^3/uL (0.0-0.5); HEMATOCRIT 60.2 % (42.0-52.0); LYMPH # 2.4 10^3/uL (1.5-5.0); LYMPH % 23.9 % (24.0-44.0); MEAN CORPUSCULAR HEMOGLOBIN 31.4 pg (27.0-33.0); MEAN CORPUSCULAR HGB CONC 33.6 g/dl (32.0-36.5); MEAN CORPUSCULAR VOLUME 93.5 fl (80.0-96.0); MONO # 0.8 10^3/uL (0.0-0.8); MONO % 7.9 % (0.0-5.0); NEUTROPHILS # 6.1 10^3/uL (1.5-8.5); PLATELET COUNT, AUTOMATED 296 10^3/uL (150-450); RED BLOOD COUNT 6.44 10^6/uL (4.30-6.10); WHITE BLOOD COUNT 9.9 10^3/uL (4.0-10.0)
[2020-04-25 12:02] LABS: HEMOGLOBIN 20.2 g/dl (13.5-17.5)
[2020-04-25 12:36] LABS: HEMOGLOBIN A1c 9.7 %
[2020-04-25 13:13] LABS: BLOOD UREA NITROGEN 18 MG/DL (7-18); CALCIUM LEVEL 8.7 MG/DL (8.5-10.1); CARBON DIOXIDE LEVEL 21 MEQ/L (21-32); CHLORIDE LEVEL 105 MEQ/L (98-107); GLOMERULAR FILTRATION RATE > 60.0 (>56); GLUCOSE, FASTING 190 MG/DL (70-100); POTASSIUM SERUM 4.8 MEQ/L (3.5-5.1); SODIUM LEVEL 136 MEQ/L (136-145)
== END ==
LOC: M LAB 09:37
PROVIDERS: ATTEND Family Medicine
DX: F11.90 Opioid use, unspecified, uncomplicated (principal)

== ENCOUNTER → 2020-07-07 | Outpatient (CLI) | payer MEDICARE ==
[~2020-07-07] MED LIST changes: +ASPI81TA26 PO; +BASA100I SC; +BUPR150T5 PO; +DIGO0.259 PO; +JARD1TAB3 PO; +METF-877 PO; +METO50TA7 PO; +OXYC10TA12 PO; +ROPI0.5T3 PO; +TRUL0.5I SC; +VITA400C56 PO
--- NOTE | 2020-07-07 12:27 | REPVR ---
PROCEDURE INFORMATION: Exam: MR Lumbar Spine Without Contrast. 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 COMPARISON: CR Spine, Lumbosacral, partial 01/29/2020 11:26 AM FINDINGS: Vertebrae: See "Discs/Spinal canal/Neural foramina" finding. Spinal cord: The conus medullaris is normal. Discs/Spinal canal/Neural foramina: Susceptibility associated with pedicle screw fixation is seen from L3 through S1 plain films better demonstrate appropriate positioning of disc spacers at the relevant disc spaces. There has been posterior unroofing at these levels. The lower thoracic and L1-L2 levels show no evidence of significant disc space narrowing, disc herniations, foraminal stenosis or canal compromise. There is loss of disc T2 signal and anterior disc osteophytic spurring at L2-L3. There is Modic type 1 vertebral endplate signal change suggesting on going irritation, possibly reflecting instability at this disc space. Flexion and extension views may be helpful. There is severe facet arthropathy and narrowing of the central canal with no fluid nerve roots on axial image 118. There is mild bilateral foraminal stenosis. There is mild right and moderate left subarticular stenosis. Soft tissues: Unremarkable. IMPRESSION: 1. Susceptibility associated with pedicle screw fixation is seen from L3 through S1 plain films better demonstrate appropriate positioning of disc spacers at the relevant disc spaces. There has been posterior unroofing at these levels. 2. There is loss of disc T2 signal and anterior disc osteophytic spurring at L2-L3. There is Modic type 1 vertebral endplate signal change suggesting on going irritation, possibly reflecting instability at this disc space. Flexion and extension views may be helpful. There is severe facet arthropathy and narrowing of the central canal with no fluid nerve roots on axial image 118. There is mild bilateral foraminal stenosis. There is mild right and moderate left subarticular stenosis. Electronically signed by: Anthony Caruso On 07/07/2020 12:26:56 PM
== END ==
LOC: M RAD 10:53
PROVIDERS: ATTEND Neurological Surgery
DX: M51.36 Other intervertebral disc degeneration, lumbar region (principal); M48.061 Spinal stenosis, lumbar region without neurogenic claudication

== ENCOUNTER → 2020-09-01 | Outpatient (CLI) | payer MEDICARE ==
[~2020-09-01] MED LIST changes: -BUPR150T3; +BUPR150T4; -LISI-542; +LISI-898
[2020-09-01 12:22] LABS: HEMATOCRIT 57.9 % (42.0-52.0); HEMOGLOBIN 19.4 g/dl (13.5-17.5)
== END ==
LOC: M LAB 10:52
PROVIDERS: ATTEND Nurse Practitioner Family
DX: E29.1 Testicular hypofunction (principal)

== ENCOUNTER → 2020-11-04 | Outpatient (CLI) | payer MEDICARE ==
[~2020-11-04] MED LIST changes: +BUPR150T12; -BUPR150T4
[2020-11-04 11:36] LABS: BLOOD UREA NITROGEN 24 MG/DL (7-18); CARBON DIOXIDE LEVEL 24 MEQ/L (21-32); CHLORIDE LEVEL 107 MEQ/L (98-107); CHOLESTEROL LEVEL 87 MG/DL (<200); CHOLESTEROL RISK RATIO 1.891 (<5); CREATININE FOR GFR 0.89 MG/DL (0.70-1.30); GLOMERULAR FILTRATION RATE > 60.0 (>56); GLUCOSE, FASTING 182 MG/DL (70-100); HDL CHOLESTEROL 46 MG/DL (>40); LDL CHOLESTEROL 31 MG/DL (<100); NON-HDL-C 41 MG/DL; POTASSIUM SERUM 4.2 MEQ/L (3.5-5.1); SODIUM LEVEL 138 MEQ/L (136-145); TRIGLYCERIDES LEVEL 51 MG/DL (<150)
[2020-11-04 11:51] LABS: MAU/CREAT RATIO 74.1 MCG/MG (0.0-30.0)
[2020-11-04 12:34] LABS: HEMOGLOBIN A1c 8.3 %
== END ==
LOC: M LAB 09:06
PROVIDERS: ATTEND Family Medicine
DX: E11.42 Type 2 diabetes mellitus with diabetic polyneuropathy (principal); E03.9 Hypothyroidism, unspecified; E78.2 Mixed hyperlipidemia; G89.4 Chronic pain syndrome

== ENCOUNTER → 2021-02-04 | Outpatient (CLI) | payer MEDICARE ==
--- NOTE | 2021-02-04 10:02 | REP ---
INDICATION: TYPE 2 DIABETES MELLITUS WITH DIABETIC POLYNEUROPATHY. COMPARISON: 04/25/2020 TECHNIQUE: PA and lateral FINDINGS: The superior mediastinal structures are midline. The cardiac silhouette is unremarkable in size, shape, and position. The diaphragmatic surfaces of the lungs are regular, and the costophrenic angles are clear. The pulmonary rg are clear. The imaged osseous structures are intact. IMPRESSION: There is no acute cardiopulmonary disease. <Electronically signed by Moses De La Garza > 02/04/21 [id number]
[2021-02-04 10:17] LABS: BASO # 0.1 10^3/uL (0.0-0.2); BASO % 0.8 % (0.0-1.0); EOS # 0.3 10^3/uL (0.0-0.5); EOS % 3.2 % (0.0-3.0); HEMATOCRIT 47.3 % (42.0-52.0); HEMOGLOBIN 16.4 g/dl (13.5-17.5); LYMPH # 2.4 10^3/uL (1.5-5.0); LYMPH % 24.6 % (24.0-44.0); MEAN CORPUSCULAR HEMOGLOBIN 31.6 pg (27.0-33.0); MEAN CORPUSCULAR HGB CONC 34.7 g/dl (32.0-36.5); MEAN CORPUSCULAR VOLUME 91.1 fl (80.0-96.0); MONO # 0.7 10^3/uL (0.0-0.8); MONO % 7.1 % (2.0-8.0); NEUTROPHILS # 6.2 10^3/uL (1.5-8.5); NEUTROPHILS % 63.7 % (36.0-66.0); PLATELET COUNT, AUTOMATED 313 10^3/uL (150-450); RED BLOOD COUNT 5.19 10^6/uL (4.30-6.10); WHITE BLOOD COUNT 9.7 10^3/uL (4.0-10.0)
[2021-02-04 10:47] LABS: ALBUMIN 4.1 GM/DL (3.2-5.2); ALT/SGPT 24 U/L (12-78); BLOOD UREA NITROGEN 22 MG/DL (7-18); CALCIUM LEVEL 9.6 MG/DL (8.5-10.1); CARBON DIOXIDE LEVEL 24 MEQ/L (21-32); CHLORIDE LEVEL 106 MEQ/L (98-107); CREATININE FOR GFR 0.86 MG/DL (0.70-1.30); GLOMERULAR FILTRATION RATE > 60.0 (>56); GLUCOSE, FASTING 168 MG/DL (70-100); LIPASE 273 U/L (73-393); POTASSIUM SERUM 4.3 MEQ/L (3.5-5.1); SODIUM LEVEL 137 MEQ/L (136-145); TOTAL PROTEIN 7.3 GM/DL (6.4-8.2)
[2021-02-04 10:51] LABS: HEMOGLOBIN A1c 7.4 %
== END ==
LOC: M LAB 09:21
PROVIDERS: ATTEND Family Medicine
DX: E11.42 Type 2 diabetes mellitus with diabetic polyneuropathy (principal); R22.2 Localized swelling, mass and lump, trunk

== ENCOUNTER → 2021-02-13 | Outpatient (CLI) | payer MEDICARE ==
[2021-02-13 11:31] LABS: BLOOD UREA NITROGEN 22 MG/DL (7-18); CALCIUM LEVEL 9.7 MG/DL (8.5-10.1); CARBON DIOXIDE LEVEL 23 MEQ/L (21-32); CHLORIDE LEVEL 106 MEQ/L (98-107); CREATININE FOR GFR 0.85 MG/DL (0.70-1.30); FREE T4 0.98 NG/DL (0.76-1.46); GLOMERULAR FILTRATION RATE > 60.0 (>56); GLUCOSE, FASTING 181 MG/DL (70-100); MAGNESIUM LEVEL 2.1 MG/DL (1.8-2.4); POTASSIUM SERUM 4.6 MEQ/L (3.5-5.1); SODIUM LEVEL 139 MEQ/L (136-145)
== END ==
LOC: M LAB 09:19
PROVIDERS: ATTEND Physician Assistant
DX: R00.2 Palpitations (principal)

== ENCOUNTER → 2021-02-25 | Outpatient (CLI) | payer MEDICARE ==
--- NOTE | 2021-02-25 10:00 | REP ---
INDICATION: CHEST MASS, PALPABLE. COMPARISON: Comparison chest CT study November 12, 2013.. TECHNIQUE: Helical scanning is acquired. 3 mm axial images are generated. Coronal and sagittal MPR and coronal MIP images are generated. FINDINGS: Preliminary digital institutional cook radiograph demonstrates nipple jewelry on the left and fusion plate hardware in the cervical spine. On axial CT images, there is no visible soft tissue mass involving the chest wall seen. No hilar or mediastinal mass or adenopathy is observed. There is some coronary artery vascular calcification noted bilaterally. No adrenal lesion is seen. The visualized upper abdominal structures are unremarkable. There is no evidence of pleural or pericardial effusion. The lung rg are clear. No infiltrate, lung mass, or pulmonary nodule is seen. Bone window settings show no bony destructive lesion. Maximum intensity projection and multiplanar re-formation images are unremarkable. There are old healed left lateral and anterolateral rib fractures. IMPRESSION: Several old healed left lateral and anterolateral rib fractures. No chest wall mass or intrathoracic mass lesion seen. Vascular calcification. Otherwise no active cardiopulmonary disease. <Electronically signed by Yordy Mckoy > 02/25/21 [id number]
== END ==
LOC: M RAD 09:17
PROVIDERS: ATTEND Family Medicine
DX: R22.2 Localized swelling, mass and lump, trunk (principal)

== ENCOUNTER → 2021-03-10 | Outpatient (CLI) | payer MEDICARE ==
--- NOTE | 2021-03-10 09:18 | REP ---
INDICATION: Assess stenosis COMPARISON: None TECHNIQUE: Carotid ultrasonography was performed bilaterally FINDINGS: Right: CCA systolic: 97.2 centimeters/second CCA diastolic: 20.6 centimeters/second ICA systolic: 63.0 centimeters/second ICA diastolic: 24.8 centimeters/second ICA CCA ratio: 0.65 Left: CCA systolic: 86.8 centimeters/second CCA diastolic: 20.7 centimeters/second ICA systolic: 60.2 centimeters/second ICA diastolic: 26.1 centimeters/second ICA CCA ratio: 0.69 Vertebral artery: Right: Antegrade flow left: Antegrade flow There is mild echogenic material seen along the carotid arterial choi some of which casts and acoustic shadow consistent with calcific deposition. IMPRESSION: According to the SRU criteria there is less than 50% stenosis of the internal carotid artery bilaterally. This is secondary to a mild amount of both calcified and noncalcified atheromatous plaque formation. <Electronically signed by Moses De La Garza > 03/10/21 0946
== END ==
LOC: M RAD 06:39
PROVIDERS: ATTEND Physician Assistant
DX: I63.59 Cerebral infarction due to unspecified occlusion or stenosis of other cerebral artery (principal)

== ENCOUNTER → 2021-09-10 | Outpatient (CLI) | payer MEDICARE ==
[~2021-09-10] MED LIST changes: -LISI-898; +LISI5TAB11
[2021-09-10 11:03] LABS: CREATININE, URINE 57.6 MG/DL; MALB URINE SIEMENS 19.9 MG/L; MAU/CREAT RATIO 34.5 MCG/MG (0.0-30.0)
[2021-09-10 11:12] LABS: HEMOGLOBIN A1c 8.7 %
[2021-09-10 11:16] LABS: BLOOD UREA NITROGEN 23 MG/DL (7-18); CARBON DIOXIDE LEVEL 24 MEQ/L (21-32); CHLORIDE LEVEL 105 MEQ/L (98-107); CHOLESTEROL LEVEL 85 MG/DL (<200); CHOLESTEROL RISK RATIO 1.931 (<5); GLOMERULAR FILTRATION RATE > 60.0 (>56); GLUCOSE, FASTING 166 MG/DL (70-100); HDL CHOLESTEROL 44 MG/DL (>40); LDL CHOLESTEROL 28 MG/DL (<100); NON-HDL-C 41 MG/DL; POTASSIUM SERUM 4.2 MEQ/L (3.5-5.1); SODIUM LEVEL 136 MEQ/L (136-145); TRIGLYCERIDES LEVEL 65 MG/DL (<150)
== END ==
LOC: M LAB 08:41
PROVIDERS: ATTEND Family Medicine
DX: E11.42 Type 2 diabetes mellitus with diabetic polyneuropathy (principal); E03.9 Hypothyroidism, unspecified

== ENCOUNTER → 2021-09-30 | Outpatient (CLI) | payer MEDICARE | LOC: M LABSMTC 11:23 | PROVIDERS: ATTEND Pediatrics | DX: Z11.52 Encounter for screening for COVID-19 (principal) | CPT/HCPCS: C9803; U0003 ==

== ENCOUNTER → 2022-06-02 | Outpatient (CLI) | payer MEDICARE, OTHER ==
[~2022-06-02] MED LIST changes: +BUPR-71 PO; -BUPR150T5 PO
[2022-06-02 10:16] LABS: HEMOGLOBIN A1c 7.6 %
[2022-06-02 10:36] LABS: BLOOD UREA NITROGEN 24 MG/DL (7-18); CALCIUM LEVEL 9.5 MG/DL (8.5-10.1); CARBON DIOXIDE LEVEL 27 MEQ/L (21-32); CHLORIDE LEVEL 104 MEQ/L (98-107); CHOLESTEROL LEVEL 112 MG/DL (<200); CHOLESTEROL RISK RATIO 2.285 (<5); CREATININE FOR GFR 0.83 MG/DL (0.70-1.30); GLOMERULAR FILTRATION RATE > 60.0 (>56); GLUCOSE, FASTING 152 MG/DL (70-100); HDL CHOLESTEROL 49 MG/DL (>40); LDL CHOLESTEROL 50 MG/DL (<100); NON-HDL-C 63 MG/DL; POTASSIUM SERUM 4.1 MEQ/L (3.5-5.1); SODIUM LEVEL 136 MEQ/L (136-145); TRIGLYCERIDES LEVEL 65 MG/DL (<150)
== END ==
LOC: M LAB 09:10
PROVIDERS: ATTEND Family Medicine
DX: E11.42 Type 2 diabetes mellitus with diabetic polyneuropathy (principal)

== ENCOUNTER → 2023-06-30 | Outpatient (CLI) | payer MEDICARE, OTHER ==
[~2023-06-30] MED LIST changes: -OXYB5TAB10; +OXYB5TAB11; -ROPI0.5T3 PO; +ROPI0.5T33 PO; -ROPI1TAB3; +ROPI1TAB73
[2023-06-30 11:36] LABS: HEMOGLOBIN A1c 6.2 % (4.0-6.0)
[2023-06-30 11:46] LABS: BLOOD UREA NITROGEN 21 MG/DL (9-23); CALCIUM LEVEL 9.3 MG/DL (8.5-10.1); CARBON DIOXIDE LEVEL 26 MMOL/L (20-31); CHLORIDE LEVEL 106 MMOL/L (98-107); CHOLESTEROL LEVEL 135 MG/DL (<200); CHOLESTEROL RISK RATIO 2.95 (<5); CREATININE FOR GFR 0.75 MG/DL (0.70-1.30); GLOMERULAR FILTRATION RATE > 60.0 (>56); GLUCOSE, FASTING 140 MG/DL (60-100); HDL CHOLESTEROL 45.7 MG/DL (>40); LDL CHOLESTEROL 73.1 MG/DL (<100); NON-HDL-C 89.3 MG/DL; POTASSIUM SERUM 4.5 MMOL/L (3.5-5.1); SODIUM LEVEL 140 MMOL/L (136-145); TRIGLYCERIDES LEVEL 81 MG/DL (<150)
[2023-06-30 11:49] LABS: THYROID STIMULATING HORMONE 2.792 uIU/ML (0.55-4.78)
== END ==
LOC: M LAB 09:38
PROVIDERS: ATTEND Family Medicine
DX: E11.65 Type 2 diabetes mellitus with hyperglycemia (principal)

== ENCOUNTER → 2023-10-10 | Outpatient (CLI) | payer OTHER ==
[~2023-10-10] MED LIST changes: -OXYB5TAB11; +OXYB5TAB14
[2023-10-10 17:30] LABS: BLOOD UREA NITROGEN 24 MG/DL (9-23); CALCIUM LEVEL 9.3 MG/DL (8.5-10.1); CARBON DIOXIDE LEVEL 28 MMOL/L (20-31); CHLORIDE LEVEL 106 MMOL/L (98-107); CREATININE FOR GFR 0.81 MG/DL (0.70-1.30); GLOMERULAR FILTRATION RATE > 60.0 (>56); GLUCOSE, FASTING 113 MG/DL (60-100); POTASSIUM SERUM 4.5 MMOL/L (3.5-5.1); SODIUM LEVEL 138 MMOL/L (136-145)
== END ==
LOC: M LAB 15:52
PROVIDERS: ATTEND Ophthalmology
DX: H33.022 Retinal detachment with multiple breaks, left eye (principal)

== ENCOUNTER 2024-01-25 10:13 | Day surgery (SDC) | payer MEDICARE, OTHER ==
[~2024-01-25] VITALS: Ht 170.2 cm; Wt 82.2 kg
[~2024-01-25 10:13] MED LIST changes: +ONDA-282 PO; -ONDA4TAB6 PO; +PHENYLEPHRINE 10% OPHTH SOL 5ML OS PRN
[2024-01-25] MEDS ORDERED: MIDAZOLAM INJ 2MG/2ML VIAL As Ordered ONE (11:04)
[2024-01-25] MEDS ORDERED: fentaNYL 100 MCG/2 ML INJECTION As Ordered ONE (11:04)
[2024-01-25] MEDS: LIDOCAINE 1% SDV 5ML VIAL As Ordered ONE (11:10)
[2024-01-25] MEDS: CEFUROXIME 1MG/0.1ML INTRACAMERAL INJ As Ordered ONE (11:10)
[2024-01-25] MEDS: BSS IRRIG/VANCO(10MG)/TOBRA(5MG)/EPINEPH(1:1000-0.5CC)500ML BAG-ORONLY As Ordered ONE (11:10)
[2024-01-25] MEDS: OFLOXACIN 0.3 % (OCUFLOX) OPTH SOL 5ML OS ONE (11:15)
[2024-01-25] MEDS: TROPICAMIDE 1% OPHTH SOLN 15ML OS SCH (11:16)
[2024-01-25] MEDS: PHENYLEPHRINE 2.5% OPHTH SOL 2ML OS SCH (11:16)
[2024-01-25] MEDS: LIDOCAINE 3.5 % 1ML OPHTH TOPICAL GEL OU ONE (11:16)
[2024-01-25] MEDS: ATROPINE SULFATE 1% OPHTH SOLN 2ML BTL OS SCH (11:16)
[2024-01-25 11:23] VITALS: BP 127/96; TEMP 97.6; O2SAT 97
== END 2024-01-25 12:30 | disposition home or self-care (01) ==
LOC: M SDC 10:13
PROVIDERS: ATTEND Ophthalmology
DX: H25.12 Age-related nuclear cataract, left eye (principal); H57.03 Miosis; I48.91 Unspecified atrial fibrillation; Z88.8 Allergy status to other drugs, medicaments and biological substances; Z79.899 Other long term (current) drug therapy; Z87.891 Personal history of nicotine dependence
CPT/HCPCS: 66982; J0697; J2250; J3010; V2632

== ENCOUNTER → 2024-07-04 | Outpatient (REF) | payer MEDICARE ==
[~2024-07-04] MED LIST changes: -PHENYLEPHRINE 10% OPHTH SOL 5ML OS PRN
[2024-07-04 11:34] LABS: BASO # 0.1 10^3/uL (0.0-0.2); BASO % 0.9 % (0.0-1.0); EOS # 0.3 10^3/uL (0.0-0.5); EOS % 3.3 % (0.0-3.0); HEMATOCRIT 48.4 % (42.0-52.0); HEMOGLOBIN 16.5 g/dl (13.5-17.5); LYMPH # 2.8 10^3/uL (1.5-5.0); LYMPH % 32.2 % (24.0-44.0); MEAN CORPUSCULAR HGB CONC 34.1 g/dl (32.0-36.5); MEAN CORPUSCULAR VOLUME 90.8 fl (80.0-96.0); MONO # 0.6 10^3/uL (0.0-0.8); MONO % 7.1 % (2.0-8.0); NEUTROPHILS # 4.9 10^3/uL (1.5-8.5); NEUTROPHILS % 56.2 % (36.0-66.0); PLATELET COUNT, AUTOMATED 336 10^3/uL (150-450); RED BLOOD COUNT 5.33 10^6/uL (4.30-6.10); WHITE BLOOD COUNT 8.7 10^3/uL (4.0-10.0)
[2024-07-04 11:46] LABS: HEMOGLOBIN A1c 7.1 % (4.0-6.0)
[2024-07-04 12:11] LABS: ALBUMIN 4.2 G/DL (3.2-5.2); ALKALINE PHOSPHATASE 60 U/L (40-129); ALT/SGPT 25 U/L (7.0-40); AST/SGOT 14 U/L (<34); BILIRUBIN,DIRECT 0.6 MG/DL (<0.4); BILIRUBIN,TOTAL 1.5 MG/DL (0.3-1.2); BLOOD UREA NITROGEN 25 MG/DL (9-23); CALCIUM LEVEL 10.1 MG/DL (8.5-10.1); CARBON DIOXIDE LEVEL 25 MMOL/L (20-31); CHLORIDE LEVEL 103 MMOL/L (98-107); CHOLESTEROL LEVEL 122 MG/DL (<200); CHOLESTEROL RISK RATIO 2.38 (<5); CREATININE FOR GFR 0.66 MG/DL (0.70-1.30); GLOMERULAR FILTRATION RATE > 60.0 (>56); GLUCOSE, FASTING 132 MG/DL (60-100); HDL CHOLESTEROL 51.2 MG/DL (>40); NON-HDL-C 70.8 MG/DL; POTASSIUM SERUM 4.7 MMOL/L (3.5-5.1); SODIUM LEVEL 137 MMOL/L (136-145); THYROID STIMULATING HORMONE 2.802 uIU/ML (0.55-4.78); TOTAL PROTEIN 7.7 G/DL (5.7-8.2); TRIGLYCERIDES LEVEL 49 MG/DL (<150)
== END ==
LOC: M SFHCLERA 08:25
PROVIDERS: ATTEND Family Medicine
DX: Z00.00 Encounter for general adult medical examination without abnormal findings (principal); E11.8 Type 2 diabetes mellitus with unspecified complications; E03.9 Hypothyroidism, unspecified; E78.2 Mixed hyperlipidemia

== ENCOUNTER → 2024-07-26 | Outpatient (CLI) | payer MEDICARE, MEDICAID | LOC: M EKG 08:19 | PROVIDERS: ATTEND Registered Nurse | DX: I48.0 Paroxysmal atrial fibrillation (principal) ==

== ENCOUNTER → 2024-08-27 | Outpatient (CLI) | payer MEDICARE, MEDICAID ==
[2024-08-27 12:20] LABS: ALBUMIN 4.1 G/DL (3.2-5.2); BLOOD UREA NITROGEN 24 MG/DL (9-23); CARBON DIOXIDE LEVEL 28 MMOL/L (20-31); CHLORIDE LEVEL 100 MMOL/L (98-107); GLOMERULAR FILTRATION RATE > 60.0 (>56); GLUCOSE, FASTING 169 MG/DL (60-100); MAGNESIUM LEVEL 1.9 MG/DL (1.8-2.4); POTASSIUM SERUM 4.3 MMOL/L (3.5-5.1); SODIUM LEVEL 138 MMOL/L (136-145)
== END ==
LOC: M LAB 10:39
PROVIDERS: ATTEND Registered Nurse
DX: I11.9 Hypertensive heart disease without heart failure (principal)

== ENCOUNTER → 2024-09-20 | Outpatient (CLI) | payer MEDICARE, MEDICAID | LOC: M CARPUL 12:43 | PROVIDERS: ATTEND Registered Nurse | DX: I11.9 Hypertensive heart disease without heart failure (principal) ==

== ENCOUNTER → 2024-12-18 | Outpatient (CLI) | payer MEDICARE, MEDICAID ==
[~2024-12-18] MED LIST changes: -FLOM0.4C39 PO; +TAMS-18 PO
== END ==
LOC: M RAD 09:10
DX: R05.1 Acute cough (principal)

== ENCOUNTER 2025-03-09 08:15 | Emergency (ER) | payer MEDICARE, MEDICAID ==
[~2025-03-09] VITALS: Ht 172.7 cm; Wt 83.4 kg
[2025-03-09] MEDS: LIDOCAINE 1% MDV 20 ML VIAL SC ONE (11:30)
[2025-03-09 12:21] LABS: BASO # 0.1 10^3/uL (0.0-0.2); BASO % 0.6 % (0.0-1.0); EOS # 0.3 10^3/uL (0.0-0.5); EOS % 1.7 % (0.0-3.0); LYMPH # 2.5 10^3/uL (1.5-5.0); LYMPH % 16.7 % (24.0-44.0); MONO # 1.2 10^3/uL (0.0-0.8); MONO % 8.2 % (2.0-8.0); NEUTROPHILS # 10.8 10^3/uL (1.5-8.5); NEUTROPHILS % 72.0 % (36.0-66.0); PLATELET COUNT, AUTOMATED 292 10^3/uL (150-450)
[2025-03-09 12:28] LABS: ERYTHROCYTE SEDIMENTATION RATE 37 mm/hr (0-20)
[2025-03-09] MEDS ORDERED: KETOROLAC 60 MG/2 ML VIAL IM ONE (12:40)
[2025-03-09 13:00] LABS: C REACTIVE PROTEIN QUANTITATIV 2.66 MG/DL (<1.0); CALCIUM LEVEL 8.8 MG/DL (8.5-10.1); CARBON DIOXIDE LEVEL 24 MMOL/L (20-31); CHLORIDE LEVEL 102 MMOL/L (98-107); CREATININE FOR GFR 0.63 MG/DL (0.70-1.30); GLOMERULAR FILTRATION RATE > 90.0 (>56); POTASSIUM SERUM 4.4 MMOL/L (3.5-5.1); SODIUM LEVEL 141 MMOL/L (136-145)
[2025-03-09] MEDS: NS (Normal Saline) 0.9% 1,000 ML IV ONE (13:47)
[2025-03-09] MEDS: KETOROLAC 30 MG/ML 1 ML VIAL IV ONE (13:47)
[2025-03-09] MEDS ORDERED: CEPH500C PO (14:31)
[2025-03-09] MEDS: cefTRIAXone SOD 1 GM in DEXTROSE 5% (D5W) ADV/MINI-BAG 50 ML IV ONE (14:39)
[2025-03-09 15:01] VITALS: BP 131/60; TEMP 99.5; O2SAT 100
[2025-03-09] MEDS: ACETAMINOPHEN *IV* 1,000 MG in IV 1 EA IV ONE (15:35)
== END 2025-03-09 15:37 | disposition home or self-care (01) ==
LOC: M ED 08:15
DX: L02.214 Cutaneous abscess of groin (principal); I48.91 Unspecified atrial fibrillation; I10 Essential (primary) hypertension; Z88.8 Allergy status to other drugs, medicaments and biological substances; Z79.01 Long term (current) use of anticoagulants; Z79.1 Long term (current) use of non-steroidal anti-inflammatories (NSAID); Z79.4 Long term (current) use of insulin; Z79.899 Other long term (current) drug therapy
CPT/HCPCS: 10060; 76857; 80048; 83605; 85025; 85652; 86140; 87040; 87070; 87077; 87186; 96361; 96365; 96372; 96375; 99284; J0696; J1885

== ENCOUNTER → 2025-03-27 | Outpatient (CLI) | payer MEDICARE, MEDICAID ==
[~2025-03-27] MED LIST changes: +CEPH500C PO
== END ==
LOC: M EKG 11:50
PROVIDERS: ATTEND Family Medicine
DX: I48.0 Paroxysmal atrial fibrillation (principal); R00.2 Palpitations

== ENCOUNTER → 2025-04-18 | Outpatient (REF) | payer MEDICARE, MEDICAID ==
[2025-04-18 18:16] LABS: APPEARANCE, URINE CLOUDY (CLEAR); BACTERIA, URINE AUTO NEGATIVE (NEGATIVE); BILIRUBIN, URINE AUTO NEGATIVE (NEGATIVE); BLOOD, URINE BLOOD 3+ (NEGATIVE); CREATININE, URINE 70.2 MG/DL; GLUCOSE, URINE (UA) AUTO 3+ mg/dL (NEGATIVE); KETONE, URINE AUTO TRACE mg/dL (NEGATIVE); LEUKOCYTE ESTERASE, URINE AUTO 3+ (NEGATIVE); MUCUS, URINE SMALL (NEGATIVE); NITRITE, URINE AUTO NEGATIVE (NEGATIVE); PROTEIN, URINE AUTO 2+ mg/dL (NEGATIVE); RBC, URINE AUTO TNTC /HPF (0-3); SPECIFIC GRAVITY URINE AUTO 1.031 (1.002-1.035); SQUAMOUS EPITHELIAL CELL UR AU 2 /HPF (0-6); UROBILINOGEN, URINE AUTO 0.2 mg/dL (0.0-2.0); WBC, URINE AUTO TNTC /HPF (0-3)
[2025-04-18 18:17] LABS: MALB URINE SIEMENS 357.0 MG/L; MAU/CREAT RATIO 508.5 MCG/MG (0.0-30.0)
== END ==
LOC: M SFHCLERA 17:18
PROVIDERS: ATTEND Family Medicine
DX: R31.0 Gross hematuria (principal)

== ENCOUNTER → 2025-04-19 | Outpatient (CLI) | payer MEDICARE, MEDICAID ==
[2025-04-19 12:28] LABS: BASO # 0.1 10^3/uL (0.0-0.2); BASO % 1.2 % (0.0-1.0); EOS # 0.2 10^3/uL (0.0-0.5); EOS % 2.0 % (0.0-3.0); LYMPH # 2.4 10^3/uL (1.5-5.0); LYMPH % 25.9 % (24.0-44.0); MONO # 0.9 10^3/uL (0.0-0.8); MONO % 10.0 % (2.0-8.0); NEUTROPHILS # 5.5 10^3/uL (1.5-8.5); NEUTROPHILS % 59.0 % (36.0-66.0); PLATELET COUNT, AUTOMATED 383 10^3/uL (150-450)
[2025-04-19 12:43] LABS: PSA SCREENING 1.89 NG/ML (< 4.00)
[2025-04-19 12:46] LABS: ALT/SGPT 24 U/L (7.0-40); AST/SGOT 16 U/L (<34); CALCIUM LEVEL 9.9 MG/DL (8.5-10.1); CARBON DIOXIDE LEVEL 29 MMOL/L (20-31); CHLORIDE LEVEL 98 MMOL/L (98-107); CREATININE FOR GFR 0.77 MG/DL (0.70-1.30); GLOMERULAR FILTRATION RATE > 90.0 (>56); POTASSIUM SERUM 4.0 MMOL/L (3.5-5.1); SODIUM LEVEL 140 MMOL/L (136-145)
== END ==
LOC: M RAD 11:18
PROVIDERS: ATTEND Family Medicine
DX: R31.0 Gross hematuria (principal); Z87.442 Personal history of urinary calculi; M54.16 Radiculopathy, lumbar region; Z98.1 Arthrodesis status; M25.78 Osteophyte, vertebrae; Z12.5 Encounter for screening for malignant neoplasm of prostate
CPT/HCPCS: 36415; 72114; 74021; 80053; 85025; G0103

== ENCOUNTER → 2025-05-10 | Outpatient (CLI) | payer MEDICARE ==
[~2025-05-10] MED LIST changes: +ISOVUE-370 76% 100 ML VIAL As Ordered ONE
== END ==
LOC: M RAD 14:31
PROVIDERS: ATTEND Family Medicine
DX: R31.9 Hematuria, unspecified (principal); I25.10 Atherosclerotic heart disease of native coronary artery without angina pectoris; K57.90 Diverticulosis of intestine, part unspecified, without perforation or abscess without bleeding; N40.0 Benign prostatic hyperplasia without lower urinary tract symptoms; M47.815 Spondylosis without myelopathy or radiculopathy, thoracolumbar region; K42.9 Umbilical hernia without obstruction or gangrene; K40.90 Unilateral inguinal hernia, without obstruction or gangrene, not specified as recurrent; I70.0 Atherosclerosis of aorta; R93.49 Abnormal radiologic findings on diagnostic imaging of other urinary organs
CPT/HCPCS: 74178; Q9967

== ENCOUNTER → 2025-05-21 | Outpatient (CLI) | payer MEDICARE, MEDICAID ==
[~2025-05-21] MED LIST changes: -ISOVUE-370 76% 100 ML VIAL As Ordered ONE
== END ==
LOC: M PLAIMG 10:55
PROVIDERS: ATTEND Nurse Practitioner Family
DX: M54.2 Cervicalgia (principal)

== ENCOUNTER → 2025-07-08 | Outpatient (REF) | payer MEDICARE, MEDICAID ==
[2025-07-08 18:20] LABS: CALCIUM LEVEL 8.9 MG/DL (8.5-10.1); CARBON DIOXIDE LEVEL 24 MMOL/L (20-31); CHLORIDE LEVEL 105 MMOL/L (98-107); CREATININE FOR GFR 0.71 MG/DL (0.70-1.30); GLOMERULAR FILTRATION RATE > 90.0 (>56); POTASSIUM SERUM 4.3 MMOL/L (3.5-5.1); SODIUM LEVEL 141 MMOL/L (136-145)
[2025-07-08 18:46] LABS: ESTIMATED AVERAGE GLUCOSE 209.0 MG/DL (60-110)
== END ==
LOC: M SFHCLERA 08:03
PROVIDERS: ATTEND Family Medicine
DX: E11.42 Type 2 diabetes mellitus with diabetic polyneuropathy (principal)